=== PATIENT | male | born 1940 | race Caucasian/White ===

== ENCOUNTER 2021-03-12 09:27 | Emergency (ER) | payer SELFPAY ==
[~2021-03-12] VITALS: Ht 182.9 cm; Wt 102.1 kg
--- NOTE | 2021-03-12 09:30 | NUR ---
BIBA TO BED
[2021-03-12 09:32] VITALS: BP 180/79
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
--- NOTE | 2021-03-12 09:40 | NUR ---
DR KIRBY AT BEDSIDE EVALUATING PT
--- NOTE | 2021-03-12 09:43 | NUR ---
Chloé brain initiated. Spoke with Will and advised of chloé sumner
--- NOTE | 2021-03-12 09:45 | NUR ---
Patient transported to CT accompanied by RN. Telemetry box in place
--- NOTE | 2021-03-12 09:58 | NUR ---
Patient returned from CT and placed back onto broadband installer.
--- NOTE | 2021-03-12 10:02 | NUR ---
TELENEURO REQUESTED INITIATED PER - CONNECT ID [id number]
--- NOTE | 2021-03-12 10:03 | NUR ---
RAD at bedside
--- NOTE | 2021-03-12 10:08 | NUR ---
Lab at bedside
--- NOTE | 2021-03-12 10:15 | NUR ---
Pt on video conference call with Tee
--- NOTE | 2021-03-12 10:20 | NUR ---
NIHSS 3
[2021-03-12 10:29] LABS: BASOPHILS # (AUTO) 0.1 K/uL (0.00-0.22); BASOPHILS % (AUTO) 0.6 % (0.0-2.0); EOSINOPHILS # (AUTO) 0.1 K/uL (0-0.4); EOSINOPHILS % (AUTO) 1.2 % (0.0-4.0); HEMATOCRIT 41.2 % (36-52); HEMOGLOBIN 13.8 g/dL (12.0-18.0); LYMPHOCYTES # (AUTO) 0.9 K/uL (2.0-11.5); LYMPHOCYTES % (AUTO) 9.3 % (20.5-51.1); MEAN CORPUSCULAR HEMOGLOBIN 29 pg (27-31); MEAN CORPUSCULAR HGB CONC 34 g/dL (33-37); MEAN CORPUSCULAR VOLUME 87.2 fL (80-94); MONOCYTES # (AUTO) 0.4 K/uL (0.8-1.0); MONOCYTES % (AUTO) 4.4 % (1.7-9.3); NEUTROPHILS # (AUTO) 8.4 K/uL (1.8-7.7); NEUTROPHILS % (AUTO) 84.5 % (42.2-75.2); PLATELET COUNT (AUTO) 293 K/uL (140-450); RED BLOOD CELL COUNT(AUTO) 4.73 MIL/uL (4.20-6.10); RED CELL DISTRIBUTION WIDTH 13.9 % (11.6-13.7); WHITE BLOOD COUNT (AUTO) 9.9 K/uL (4.8-10.8)
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
--- NOTE | 2021-03-12 10:45 | NUR ---
Dr. Mercedes is reevaluating patient at bedside with Teleneuro .
[2021-03-12 10:46] LABS: ALBUMIN 3.2 g/dL (3.4-5.0); ANION GAP 12.4 (8-16); ASPARTATE AMINOTRANSFERASE 21 U/L (15-37); CARBON DIOXIDE 25.3 mmol/L (21-32); CHLORIDE 108 mmol/L (98-107); CREATININE 1.7 mg/dL (0.6-1.3); GLUCOSE 196 mg/dL (74-106); POTASSIUM 4.7 mmol/L (3.5-5.1); SODIUM SERUM 141 mmol/L (136-145); TOTAL BILIRUBIN 1.1 mg/dL (0.0-1.0); UREA NITROGEN, BLOOD 25 mg/dL (7-18)
[2021-03-12 10:59] VITALS: BP 156/63
[2021-03-12] MEDS ORDERED: ASPIRIN 325 MG TAB PO ONE (11:00)
--- NOTE | 2021-03-12 11:00 | NUR ---
RUT (PEARL STANTON) [phone]
--- NOTE | 2021-03-12 11:30 | NUR ---
Patient to be transferred to [facility]. Is being transferred due to higher level of care. Receiving facility has accepting physician and available space. ER physician has signed transfer form. Patient or responsible republican has agreed to transfer and signed form. Patient belongings inventoried and will be sent with patient. Copy of nursing notes, lab reports, EKG, Physicians Orders and X-rays to be sent with patient. Report called to DARREL Greco at receiving facility. [facility] ambulance service has been called for transfer. ETA is 10min.
[2021-03-12 11:39] LABS: BILIRUBIN,URINE NEGATIVE (NEGATIVE); BLOOD, URINE 1+ (NEGATIVE); COLOR,URINE YELLOW (YELLOW); LEUKOCYTE ESTERASE ,URINE 2+ (NEGATIVE); NITRITE, URINE NEGATIVE (NEGATIVE); UGLUCOSE NEGATIVE (NEGATIVE)
--- NOTE | 2021-03-12 11:40 | NUR ---
[facility] crew at bedside
[2021-03-12 11:41] LABS: PROTHROMBIN TIME 9.9 secs (10.8-13.4)
--- NOTE | 2021-03-12 11:42 | NUR ---
Report given to DARREL Greco. All questions answered. Advised [facility] at bedside with ETA 10-15min.
[2021-03-12 12:51] LABS: APPEARANCE,URINE SLIGHTLY HAZY (CLEAR)
[2021-03-12 12:55] LABS: BARBITURATE, URINE NEGATIVE ng/ml (NEG <=200); BENZODIAZEPINE, URINE NEGATIVE ng/mL (NEG <=200); CANNABINOID, URINE NEGATIVE ng/mL (NEG <=50); COCAINE, URINE NEGATIVE ng/mL (NEG <=300); OPIATE, URINE NEGATIVE ng/mL (NEG <=2000); PHENCYCLIDINE SCREEN,URINE NEGATIVE ng/mL (NEG <=25)
== END 2021-03-12 11:42 | disposition short-term general hospital (02) ==
LOC: MED 09:27
DX: I63.9 Cerebral infarction, unspecified (principal); Z20.822 Contact with and (suspected) exposure to COVID-19; R47.01 Aphasia; R73.9 Hyperglycemia, unspecified; E87.8 Other disorders of electrolyte and fluid balance, not elsewhere classified; N17.9 Acute kidney failure, unspecified; I10 Essential (primary) hypertension
CPT/HCPCS: 36415; 70450; 70496; 70498; 71045; 80053; 80305; 81001; 83605; 84484; 85025; 85610; 85730; 86886; 86900; 86901; 87040; 87086; 87186; 87426; 93005; 99291; G0482; Q0092; Q9967